=== PATIENT | female | born 1970 | race Caucasian/White ===

== ENCOUNTER 2023-07-10 05:47 | Observation (INO) ==
[2023-07-10] MEDS ORDERED: Lactated Ringers 1000 ml BAG 1,000 ML IV SCH (06:00)
[2023-07-10] MEDS ORDERED: Famotidine IV 10 MG/ML 2 ml VIAL (20 mg) IV ONE (06:00)
[2023-07-10] MEDS ORDERED: Buffered Lidocaine 1% SYRIN 1 ml INTRADERM ONE (06:00)
[2023-07-10] MEDS ORDERED: Famotidine IV 10 MG/ML 2 ml VIAL (20 mg) ONE (06:13)
[2023-07-10 06:32] LABS: Rapid COVID-19 Molecular Undetected (Undetected)
[2023-07-10] MEDS ORDERED: ROPIVACAINE 5 MG/ML 30 ML BTL (0.5%) ONE (07:03)
[2023-07-10] MEDS ORDERED: Propofol 0 MG/0 ML BTL ONE (07:03)
[2023-07-10] MEDS ORDERED: Lidocaine 2% PF 5 ML VIAL ONE (07:03)
[2023-07-10] MEDS ORDERED: Propofol 10 MG/ML 20 ML BTL ONE ×2 (07:03→09:45)
[2023-07-10] MEDS ORDERED: Phenylephrine IV 10 MG/ML 1 ml VIAL ONE (07:03)
[2023-07-10] MEDS ORDERED: Midazolam 5 mg/5 ml VIAL 1 mg/ml 5 ml VIAL (5 mg) ONE (07:05)
[2023-07-10] MEDS ORDERED: ceFAZolin *3* GM in NS PREMIX 3 GM/100 ML BAG IV ONE (07:09)
[2023-07-10] MEDS ORDERED: Tranexamic Acid 1 GM/100ML BAG 2,000 MG/200 ML BAG IV ONE (07:09)
[2023-07-10] MEDS ORDERED: Rocuronium 50 mg VIAL 10 mg/ml 5 ml VIAL (50 mg) ONE (07:30)
[2023-07-10] MEDS ORDERED: HYDROmorphone 0.5 MG/0.5 ML SYRINGE ONE ×4 (07:31→10:01)
[2023-07-10] MEDS ORDERED: KETAMINE HCL 10 MG/ML 20 ml VIAL (200 MG) ONE (07:55)
[2023-07-10] MEDS ORDERED: Dexamethasone IV 4 MG/ML VIAL 1 ml VIAL ONE (08:22)
[2023-07-10] MEDS ORDERED: Acetaminophen IV 1 GM/100ML 1,000 MG/100 ML BAG IV ONE (08:22)
[2023-07-10] MEDS ORDERED: Ondansetron 4 mg VIAL 2 MG/ML 2 ml VIAL ONE (08:22)
[2023-07-10] MEDS ORDERED: Levalbuterol HFA INHALER MDI ONE (08:23)
[2023-07-10] MEDS ORDERED: Ondansetron 4 mg VIAL 2 MG/ML 2 ml VIAL IV PRN ×2 (08:59→10:12)
[2023-07-10] MEDS ORDERED: Naloxone 0.4 mg VIAL 0.4 mg/ml 1 ml VIAL IV PRN (08:59)
[2023-07-10] MEDS ORDERED: Morphine 2 MG/ML SYRINGE IV PRN (10:12)
[2023-07-10] MEDS ORDERED: Ondansetron ODT 4 mg TAB 4 MG TAB PO PRN (10:12)
[2023-07-10] MEDS ORDERED: Magnesium Hydroxide LIQ 30 ML UDC PO PRN (10:12)
[2023-07-10] MEDS ORDERED: Lactulose 30 ml UDC PO PRN (10:12)
[2023-07-10] MEDS ORDERED: HYDROmorphone 1 MG/1 ML SYRINGE ONE (10:26)
[2023-07-10] MEDS: HYDROmorphone 1 MG/1 ML SYRINGE IV PRN ×2 (10:29→10:39)
[2023-07-10] MEDS ORDERED: Albuterol HFA INHALER 8 gm MDI INH PRN (10:33)
[2023-07-10] MEDS ORDERED: Morphine 4 MG/ML VIAL (1 ml) ONE ×4 (10:47→12:01)
[2023-07-10] MEDS: Morphine 4 MG/ML VIAL (1 ml) IV PRN ×5 (10:49→12:02)
[2023-07-10] MEDS: Lactated Ringers 1000 ml BAG 1,000 ML IV SCH (13:27)
[2023-07-10] MEDS: ceFAZolin 1 GM ADVAN 1 GM in NS 0.9% 50 ML 50 ML IVPB SCH (16:27)
[2023-07-10] MEDS: Morphine ER 15 mg TAB ** extended release PO SCH (21:14)
[2023-07-10] MEDS: Magnesium Hydroxide LIQ 30 ML UDC PO SCH (21:16)
[2023-07-11] MEDS: Lactated Ringers 1000 ml BAG 1,000 ML IV SCH (00:55)
[2023-07-11] MEDS: ceFAZolin 1 GM ADVAN 1 GM in NS 0.9% 50 ML 50 ML IVPB SCH ×2 (00:59→08:18)
[2023-07-11 06:00] LABS: Platelet Count 281 10^3/uL (150-450)
[2023-07-11 06:21] LABS: Hematocrit 37.1 % (35-45); Hemoglobin 12.3 g/dL (11.5-14.3); Mean Platelet Volume 8.4 fL (7.5-11.2)
[2023-07-11 06:45] LABS: Calcium 9.1 mg/dL (8.6-10.3); Creatinine, Serum 0.97 mg/dL (0.51-0.95); Potassium 3.6 mmol/L (3.5-5.0); eGFR CKD-EPI 70.3 (>60)
[2023-07-11] MEDS: Morphine ER 15 mg TAB ** extended release PO SCH (08:17)
[2023-07-11] MEDS: Magnesium Hydroxide LIQ 30 ML UDC PO SCH (08:26)
[2023-07-11] MEDS ORDERED: Tiotropium Brom/Olodaterol MDI (ACUTE) INH SCH (09:00)
[2023-07-11] MEDS ORDERED: Vitamin THERAPEUTIC TAB PO SCH (09:00)
[2023-07-11 10:16] VITALS: BP 128/68
== END 2023-07-11 11:35 | disposition home or self-care (01) ==
LOC: AA 05:47 → INTOOBSV 05:47 → SSU 12:25
PROVIDERS: ADMIT Orthopaedic Surgery Adult Reconstructive Orthopaedic Surgery; ATTEND Orthopaedic Surgery Adult Reconstructive Orthopaedic Surgery